=== PATIENT | female | born 1950 | race Caucasian/White ===

== ENCOUNTER → 2018-11-01 | Day surgery (SDC) | payer OTHER ==
--- NOTE | 2018-11-01 15:59 | OP ---
DATE OF OPERATION: 11/01/2018 PREOPERATIVE DIAGNOSIS: Abnormal right mammography. POSTOPERATIVE DIAGNOSIS: Abnormal right mammography. PROCEDURE: Right stereotactic needle biopsy with clip. SURGEON: Mercedes Liu MD ANESTHESIA: Local. COMPLICATIONS: None. DISPOSITION: Stable at end of procedure . INDICATIONS FOR PROCEDURE: Patient presented for a routine screening mammography that noted increasing microcalcifications in the upper outer right breast. My recommendation was a needle biopsy. The procedure was discussed with all the questions answered. PROCEDURE IN DETAIL: Patient brought to [facility] in [place], laid prone on the Lor[place] table. Using the lateral approach, the calcifications in the upper outer right breast were identified. A sterile prep was obtained. A target was chosen. There was a positive stroke margin. Using Betadine and 1% lidocaine, a 9-gauge Mobcartos device was used to take several cores from this area. Cores calcifications within them. These were handled using calcification protocol. A clip was deployed in the area. Hemostasis was assured with direct pressure. Steri-Strips were used to close the incision. She tolerated the procedure well. Left the breast imaging center in good condition. MERCEDES LIU M.D. [id number]
--- NOTE | 2018-11-02 15:42 | PATH ---
Surgical Pathology Report Patient Name: DAJA GARCIA [facility]. Rec. #: [id number] /Age/Gender: 1950 (Age: 67) / F Account: [id number] Location: [facility] Taken: 11/01/2018 Received: 11/01/2018 Reported: 11/02/2018 Physicians: Mercedes Cleveland M.D. Specimen(s) Received A: RIGHT BREAST SPECIMEN-WITH CALCIFICATIONS B: RIGHT BREAST SPECIMEN-WITHOUT CALCIFICATIONS Clinical History Nonpalpable lesions Mammographic findings: Microcalcification, suspicious Final Diagnosis A. BREAST, RIGHT, WITH CALCIFICATIONS, STEREOTACTIC BIOPSY: INVASIVE DUCTAL CARCINOMA, POORLY DIFFERENTIATED WITH FEW ASSOCIATED CALCIFICATIONS, MEASURING 7 MM IN GREATEST DIMENSION IN THIS MATERIAL. (SEE NOTE) DUCTAL CARCINOMA IN SITU (DCIS), SOLID TYPE, HIGH NUCLEAR GRADE WITH EXTENSIVE NECROSIS. Note: Myoepithelial immunohistochemical markers (SMM-HC and p63, performed at [facility]) demonstrate the lack of myoepithelial cells in the invasive carcinoma. This finding supports the diagnosis. B. BREAST, RIGHT, WITHOUT CALCIFICATIONS, STEREOTACTIC BIOPSY: INVASIVE DUCTAL CARCINOMA, POORLY DIFFERENTIATED. DUCTAL CARCINOMA IN SITU (DCIS), SOLID TYPE, HIGH NUCLEAR GRADE WITH EXTENSIVE NECROSIS. FOCI OF LYMPHOVASCULAR INVASION ARE IDENTIFIED. Results of ER and ID studies performed on block A at [facility] are as follows: ER (clone [id number] mouse monoclonal antibody by [employer]): 0 % nuclear staining (Negative). ID (clone16 mouse monoclonal antibody by [employer]): 0 % nuclear staining (Negative). Results of Her2 & Ki67 studies will be reported separately in an addendum. Positive and negative controls (internal if applicable) show appropriate results. Formalin fixation and cold ischemic times are within current ASCO/CAP recommendations for ER, ID and Her2 testing. Electronically Signed Barbara Garcia M.D. Addendum Reported: 11/03/2018 Addendum Diagnosis Results of Her2 (IHC) & Ki-67 studies performed on block A1 at [place], [place] ([id number]) are as follows: Her2 IHC (EP3 from [employer], formerly known as [id number], using [employer] Polymer Refine detection kit): 0 (negative). Ki-67: ~40% (high proliferative index). Positive and negative controls (internal if applicable) show appropriate results. Barbara Garcia M.D. Gross Description A. Received in formalin labeled "right breast with calcifications," are 2 linn-yellow, cylindrical portions of fibroadipose tissue averaging 2.0 cm in length and 0.3 cm in diameter. The specimens are submitted in toto in one cassette. B. Received in formalin labeled "right breast without calcifications," are 7 linn-yellow, cylindrical portions of fibroadipose tissue ranging from 0.5-2.0 cm in length and averaging 0.3 cm in diameter. The specimens are submitted in toto in 2 cassettes. Time to formalin fixation: 5 minutes Total formalin fixation time: Approximately 6 hours. 11/01/2018 [facility]11/01/2018
== END | disposition home or self-care (01) ==
LOC: FMAMMOTONE 10:57
PROVIDERS: ATTEND Surgery
PROC: 0HBT3ZX Excision of Right Breast, Percutaneous Approach, Diagnostic (ICD-10-PCS; principal; 2018-11-01)
DX: C50.411 Malignant neoplasm of upper-outer quadrant of right female breast (principal); D05.11 Intraductal carcinoma in situ of right breast; Z17.1 Estrogen receptor negative status [ER-]; R92.8 Other abnormal and inconclusive findings on diagnostic imaging of breast
CPT/HCPCS: 19081; 87899; 88305-TC; 88341-TC; 88342-TC; A4648

== ENCOUNTER 2018-12-15 04:57 | Day surgery (SDC) | payer OTHER | END 2018-12-15 15:20 | disposition home or self-care (01) | LOC: JASU-SURG 04:57 ==

== ENCOUNTER 2019-01-12 08:42 | Day surgery (SDC) | payer OTHER ==
[2019-01-12 09:07] VITALS: BMI 27.7
[2019-01-12] MEDS ORDERED: SUCCINYLCHOLINE CHLORIDE 200 MG/10 ML SYRINGE ONE (09:09)
[2019-01-12] MEDS ORDERED: fentaNYL CITRATE 250 MCG/5 ML VIAL ONE (09:09)
[2019-01-12] MEDS ORDERED: MIDAZOLAM HCL 2 MG/2 ML SINGLE DOSE VIAL ONE (09:09)
[2019-01-12] MEDS ORDERED: PROPOFOL 20 ML ONE (09:09)
[2019-01-12] MEDS ORDERED: LIDOCAINE HCL/PF 2% SDV 5ML VIAL ONE (09:10)
[2019-01-12] MEDS ORDERED: DEXAMETHASONE SOD PHOSPHATE 4 MG/1 ML VIAL ONE (09:10)
[2019-01-12] MEDS ORDERED: LIDOCAINE HCL 1%, 10 MG/ML (20ML VIAL) ONE (09:44)
[2019-01-12] MEDS ORDERED: oxyCODONE HCL 5 MG TABLET PO PRN ×2 (10:13)
[2019-01-12] MEDS ORDERED: ONDANSETRON 4 MG/2 ML VIAL IVPUSH PRN (10:13)
[2019-01-12] MEDS ORDERED: LACTATED RINGERS SOLUTION 1,000 ML IV SCH (10:15)
[2019-01-12] MEDS ORDERED: ceFAZolin SODIUM 1 GM VIAL IVPB ONE (10:39)
[2019-01-12] MEDS ORDERED: ceFAZolin SODIUM 1 GM VIAL ONE (10:43)
[2019-01-12] MEDS ORDERED: LIDOCAINE HCL 1%, 10 MG/ML (20ML VIAL) NR ONE (10:49)
[2019-01-12] MEDS ORDERED: KETOROLAC TROMETHAMINE 30 MG/1 ML VIAL ONE (11:37)
--- NOTE | 2019-01-12 12:06 | SURG ---
Surgery Technical Sales Associate Note Technical Sales Associate: Henok Colbert PA-C Date of Service: 01/12/19 Diagnosis: Rt breast cancer Procedure: Right breast re-excision lumpectomy and axillary lymph node dissection I was present for the entirety of the operative procedure. For further detail, please refer to operative report. Visit type - Case Type Case Type: Scheduled - Emergency Emergency Visit: No - New patient This patient is new to me today: Yes Date on this admission: 01/12/19 - Critical Care Critical Care patient: No
[2019-01-12] MEDS ORDERED: ONDANSETRON 4 MG/2 ML VIAL ONE (12:58)
[2019-01-12] MEDS ORDERED: oxyCODONE HCL 5 MG TABLET ONE (14:10)
[2019-01-12] MEDS ORDERED: oxyCODONE HCL 5 MG TABLET PO ONE (14:10)
[2019-01-12 16:28] VITALS: BP 122/71; PULSE 67; TEMP 97.9
--- NOTE | 2019-01-12 16:58 | OP ---
DATE OF OPERATION: 01/12/2019 PREOPERATIVE DIAGNOSIS: Right breast cancer. POSTOPERATIVE DIAGNOSIS: Right breast cancer. PROCEDURE: Right breast re-excision lumpectomy, completion node dissection. SURGEON: Mercedes Cleveland MD ANESTHESIA: General. ESTIMATED BLOOD LOSS: Minimal. COMPLICATIONS: None. This was a sterile procedure. INDICATIONS: Patient had a right breast stereotactic needle biopsy for calcifications that were noted lumpectomy and sentinel node biopsy which was performed by me, and then the lumpectomy showed a triple-negative 1.5-cm invasive carcinoma with DCIS that was close on the inferior margin. Therefore, my recommendation was re-excision. Also on the one sentinel node I removed there were multiple clusters of carcinoma. Thereafter, recommendation was for completion node dissection. The procedure was discussed, with all the questions answered. PROCEDURE IN DETAIL: Patient was brought to [facility] and taken into the operating room, and after induction of general anesthesia and IV antibiotics, the right breast and axilla were prepped and draped in the usual sterile fashion. The prior incision in the outer right breast was reopened sharply and the seroma cavity was entered. A new inferior margin was taken with a long stitch laterally and a short stitch in the new inferior margin. This was sent to pathology for permanent section. Hemostasis was assured with electrocautery. The parenchyma was approximated with interrupted 2-0 Vicryl, skin approximated with interrupted 3-0 Vicryl, running 4-0 Prolene. A sterile dressing with Tegaderm applied. Next, the right breast completion node dissection was performed. The prior incision was sharply reopened and the axillary cavity was entered. All the axillary contents were removed, and care was taken to preserve the thoracodorsal and long thoracic neurovascular bundles. The axillary contents were sent to pathology for permanent section. Hemostasis was achieved with electrocautery and hemoclips. Through a separate stab wound, a 10-mm DUSTIN drain was inserted into the right axilla and secured to the skin with a nylon stitch. The incision was then closed in a routine fashion with interrupted 3-0 Vicryl, running 4-0 Prolene. A sterile dressing of Tegaderm was applied, and 1% lidocaine without epinephrine was given in the axillary wound as well as the lumpectomy site. She tolerated the procedure well. Once the sterile dressing of Tegaderm and 4 x 4's was applied, she was extubated and taken to recovery room in good condition. Bobby VALENZUELA/[id number]
--- NOTE | 2019-01-15 16:24 | PATH ---
Surgical Pathology Report Patient Name: DAJA GARCIA [facility]. Rec. #: [id number] /Age/Gender: 1950 (Age: 68) / F Account: [id number] Location: [facility] SURGICAL Taken: 01/12/2019 Received: 01/12/2019 Reported: 01/15/2019 Physicians: Mercedes Cleveland M.D. Specimen(s) Received A: RIGHT BREAST NEW INFERIOR MARGIN B: RIGHT AXILLARY CONTENTS Clinical History Right breast cancer Final Diagnosis A. BREAST, RIGHT, NEW INFERIOR MARGIN, EXCISION: BENIGN BREAST PARENCHYMA WITH STROMAL FIBROSIS, MICROCYSTS, APOCRINE METAPLASIA, AND USUAL DUCTAL HYPERPLASIA IN A BACKGROUND OF CHANGES OF PRIOR PROCEDURE. NO CARCINOMA IDENTIFIED. B. AXILLARY CONTENTS, RIGHT, DISSECTION: FIFTEEN LYMPH NODES, NEGATIVE FOR CARCINOMA (0/15). BENIGN FIBROADIPOSE TISSUE WITH FIBROSIS, FAT NECROSIS, AND CHANGES OF PRIOR PROCEDURE. Electronically Signed Digna Coronado M.D. Gross Description A. Received in formalin labeled "right breast new inferior margin," is a 4.0 x 2.6 x 1.0 cm portion of fibroadipose tissue with a long suture marking the lateral aspect and a short suture marking the new inferior margin, per the surgeon. The lateral aspect is inked red and the new inferior margin is inked blue. The specimen is serially sectioned. The specimen is entirely and sequentially submitted in 7 cassettes. B. Received in formalin labeled "right axillary contents," is an 8.0 x 7.5 x 2.3 cm aggregate of yellow, lobulated adipose tissue. Sectioning reveals abundant linn-red lymph nodes measuring up to 2.5 cm in greatest dimension. The lymph nodes are entirely submitted in 13 cassettes as follows: 1-3-one trisected lymph node; 4-5-one bisected lymph node each; 6-12-two whole lymph nodes each; 13-one whole lymph node. 01/12/201901/12/2019
== END 2019-01-12 16:30 | disposition home or self-care (01) ==
LOC: JASU-SURG 08:42
PROVIDERS: ATTEND Surgery
PROC: 0HBT0ZZ Excision of Right Breast, Open Approach (ICD-10-PCS; principal; 2019-01-12 10:00)
PROC: 07B50ZX Excision of Right Axillary Lymphatic, Open Approach, Diagnostic (ICD-10-PCS; 2019-01-12 10:00)
DX: C50.911 Malignant neoplasm of unspecified site of right female breast (principal)
CPT/HCPCS: 88307-TC; 94760

== ENCOUNTER 2019-01-18 03:28 | Emergency (ER) | payer OTHER ==
[2019-01-18 04:14] VITALS: BMI 23.5
--- NOTE | 2019-01-18 04:48 | PDOC ---
Attending Attestation - Resident Resident Name: Magdalena Jim - ED Attending Attestation I have performed the following: I have examined & evaluated the patient, The case was reviewed & discussed with the resident, I agree w/resident's findings & plan - HPI HPI: 01/18/19 06:30 68-year-old female with history of breast cancer status post recent lumpectomy now with right-sided pleuritic chest and back pain. - Physicial Exam PE: 01/18/19 06:30 GENERAL: Awake, in no acute distress HEAD: No signs of trauma NECK: Normal ROM, LUNGS:. dim BS right base HEART: Regular rate and rhythm, ABDOMEN: Soft, nondistended CHEST WALL: BACK: No midline tenderness. EXTREMITIES:. No erythema, or tenderness NEUROLOGICAL: Alert, SKIN: Warm, Dry - Medical Decision Making 01/18/19 06:31 68-year-old female with right-sided pleuritic chest pain Due to history of malignancy a CTA of the chest has been ordered EKG shows no significant ST segment changes Will sign case out to oncoming shift
--- NOTE | 2019-01-18 05:02 | PDOC ---
History of Present Illness - General Chief Complaint: Pain, Acute Stated Complaint: Back pain Time Seen by Provider: 01/18/19 04:37 History Source: Patient, Family Exam Limitations: Language Barrier - History of Present Illness Initial Comments: 01/18/19 05:00 68yo F with PMH of R Breast Ca s/p lumpectomy 01/12/19, HTN, HLD presenting to ED with daughter for sudden onset sharp back pain that started at midnight tonight. Pt states she was sleeping and was woken up around midnight. She endorses pain with inspiration. She was prescribed Percocet for the pain but it did not help. She states that this pain is different. She denies cough, chest pain, fevers, chills, abdominal pain, n/v/d, headaches, palpitations. She is not on chemotherapy or any other medications. PMD: ONC: PMH: see hpi PSH: see hpi Meds: see med rec Allergies: nkda Past History - Past Medical History Allergies/Adverse Reactions: Allergies Allergy/AdvReac Type Severity Reaction Status Date / Time shrimp Allergy Intermediate VOMITING/DI Verified 01/18/19 04:10 ARRHEA Home Medications: Ambulatory Orders Hydrochlorothiazide [Hctz -] 25 mg PO DAILY 12/15/18 Rosuvastatin [Crestor -] 20 mg PO DAILY 12/15/18 Cephalexin Monohydrate [Keflex -] 500 mg PO Q8H 7 Days #30 capsule 01/12/19 Cephalexin [Keflex] 500 mg PO TID 7 Days capsule 01/12/19 Oxycodone HCl/Acetaminophen [Percocet 5-325 mg Tablet] 2 tab PO Q6H PRN #20 tablet MDD 8 pills 01/12/19 Anemia: No Asthma: No Cancer: Yes (Right Breast) Cardiac Disorders: No CVA: No COPD: No CHF: No Dementia: No Diabetes: No GI Disorders: No Disorders: No HTN: Yes Hypercholesterolemia: Yes (no medication currently) Liver Disease: No Seizures: No Thyroid Disease: No - Suicide/Smoking/Psychosocial Hx Smoking History: Never smoked Have you smoked in the past 12 months: No If you are a former smoker, when did you quit?: 40 YEARS AGO Information on smoking cessation initiated: No Hx Alcohol Use: No Drug/Substance Use Hx: No Substance Use Type: None Hx Substance Use Treatment: No Review of Systems - Review of Systems Constitutional: No: Chills, Fever, Weakness HEENTM: No: Symptoms Reported Respiratory: Yes: Other (inspirational cp). No: Cough, Shortness of Breath Cardiac (ROS): Yes: Lightheadedness. No: Chest Pain, Palpitations ABD/GI: No: Constipated, Diarrhea, Nausea, Vomiting Musculoskeletal: Yes: See HPI, Back Pain. No: Neck Pain, Joint Stiffness Integumentary: No: Symptoms Reported Neurological: No: Symptoms reported *Physical Exam - Vital Signs Last Vital Signs Temp Pulse Resp BP Pulse Ox 99.3 F 100 H 20 140/82 97 01/18/19 03:45 01/18/19 03:45 01/18/19 03:45 01/18/19 03:45 01/18/19 03:45 - Physical Exam General Appearance: Yes: Nourished, Appropriately Dressed. No: Apparent Distress HEENT: positive: EOMI, DARRYN, Normal ENT Inspection Neck: positive: Trachea midline, Supple Respiratory/Chest: positive: Lungs Clear, Normal Breath Sounds Cardiovascular: positive: Regular Rhythm, S1, S2, Tachycardia. negative: Edema , JVD, Murmur Gastrointestinal/Abdominal: positive: Normal Bowel Sounds, Soft. negative: Tender Musculoskeletal: positive: Other (R upper back tenderness subscapular. ). negative: CVA Tenderness, Vertebral Tenderness Integumentary: positive: Normal Color, Dry, Warm Neurologic: positive: automobile seat cover installer II-XII NML intact, Fully Oriented, Alert, Normal Mood/ Affect, Normal Response, Motor Strength 11/12 ED Treatment Course - LABORATORY CBC & Chemistry Diagram: 01/18/19 05:42 01/18/19 05:42 - RADIOLOGY Radiology Studies Ordered: Category Date Time Status CHEST PA & LAT [RAD] Stat Radiology 01/18/19 04:58 Ordered Medical Decision Making - Medical Decision Making 01/18/19 06:57 68yo F with PMH of R Breast Ca s/p lumpectomy 01/12/19, HTN, HLD presenting to ED with daughter for sudden onset sharp back pain that started at midnight tonight. Pt states she was sleeping and was woken up around midnight. She endorses pain with inspiration. She was prescribed Percocet for the pain but it did not help. She denies cough, chest pain, fevers, chills, abdominal pain, n/v/ d, headaches, palpitations. She is not on chemotherapy or any other medications. Vitals: tachycardia PE: R subscapular tenderness, pain with inspiration ddx includes but not limited to pe, msk, pna, -labs -ekg -percocet -CTA Cr 1.4. will hydrate and obtain consent for CT. PERC positive. EKG: NSR at 98. NM 158, QTc 428. no elsa or depressions. trop pending pt started feeling dizzy, could be 2/2 percocet, will give iv fluids. 01/18/19 07:47 signed out to day team *DC/Admit/Observation/Transfer Diagnosis at time of Disposition: Back pain Qualifiers: Back pain location: thoracic back pain Chronicity: acute Back pain laterality: right Qualified Code(s): M54.6 - Pain in thoracic spine - Discharge Dispostion Condition at time of disposition: Fair - Referrals - Patient Instructions - Post Discharge Activity
[2019-01-18 05:54] LABS: BASO % 0.7 % (0-2.0); EOS % 0.6 % (0-4.5); HEMATOCRIT 35.3 % (32.4-45.2); LYMPH % 14.1 % (8-40); MEAN PLT VOLUME 7.7 fl (7.5-11.1); MONO % 8.1 % (3.8-10.2); NEUT % 76.5 % (42.8-82.8); PLATELET COUNT 283 K/MM3 (134-434); RBC 3.75 M/mm3 (3.60-5.2); RDW 12.9 % (11.6-15.6); WHITE BLOOD COUNT 9.7 K/mm3 (4.0-10.0)
[2019-01-18 06:20] LABS: ALBUMIN 3.6 g/dl (3.4-5.0); ALK PHOS 96 U/L (45-117); ANION GAP 6 MMOL/L (8-16); BILIRUBIN,TOTAL 0.7 mg/dL (0.2-1); BLOOD UREA NITROGEN 24.3 mg/dL (7-18); CALCIUM 9.4 mg/dL (8.5-10.1); CHLORIDE 97 mmol/L (98-107); CO2 32 mmol/L (21-32); CREATININE 1.4 mg/dL (0.55-1.3); GLUCOSE,RANDOM 108 mg/dL (74-106); POTASSIUM 4.2 mmol/L (3.5-5.1); SGOT/AST 31 U/L (15-37); SGPT/ALT 60 U/L (13-61); SODIUM 134 mmol/L (136-145); TOT PROT 7.5 g/dl (6.4-8.2)
[2019-01-18] MEDS ORDERED: SODIUM CHLORIDE 1,000 ML IV STA (06:38)
--- NOTE | 2019-01-18 08:00 | PDOC ---
*Physical Exam - Vital Signs Last Vital Signs Temp Pulse Resp BP Pulse Ox 99.3 F 100 H 20 140/82 97 01/18/19 03:45 01/18/19 03:45 01/18/19 03:45 01/18/19 03:45 01/18/19 03:45 ED Treatment Course - LABORATORY CBC & Chemistry Diagram: 01/18/19 05:42 01/18/19 05:42 - ADDITIONAL ORDERS Additional order review: Laboratory Results 01/18/19 05:42 Sodium 134 L Potassium 4.2 Chloride 97 L Carbon Dioxide 32 Anion Gap 6 L BUN 24.3 H Creatinine 1.4 H Est GFR (CKD-EPI)AfAm 44.95 Est GFR (CKD-EPI)NonAf 38.78 Random Glucose 108 H Calcium 9.4 Total Bilirubin 0.7 AST 31 ALT 60 Alkaline Phosphatase 96 Troponin I < 0.02 Total Protein 7.5 Albumin 3.6 01/18/19 05:42 RBC 3.75 MCV 94.0 MCHC 34.0 RDW 12.9 MPV 7.7 Neutrophils % 76.5 D Lymphocytes % 14.1 D Monocytes % 8.1 Eosinophils % 0.6 Basophils % 0.7 - Medications Given in the ED: ED Medications Discontinued Medications Generic Name Dose Route Start Last Admin Trade Name Freq PRN Reason Stop Dose Admin Sodium Chloride 1,000 mls @ 1,000 mls/hr 01/18/19 06:38 01/18/19 06:53 Normal Saline - IV 01/18/19 07:37 1,000 mls/hr ASDIR STA Administration Oxycodone/Acetaminophen 2 combo 01/18/19 04:58 01/18/19 05:58 Percocet 5/325 - PO 01/18/19 04:59 2 combo ONCE ONE Administration Medical Decision Making - Medical Decision Making Pt was signed out to me by resident Dr. Jim, who explained the presentation, ED course, any pending results, and needed interventions. Pending results include CTA read. Pt is currently stable and is lying comfortably. CBC WNL CMP Na 134, BUN/Cr 24/1.4 -- pt baseline, receiving IVF and percocet Pending CTA read. ECG: NSR, intervals WNL (HR 98, SD 158, QRS 72, QTC 428). No TWIs or significant ST segment changes. No significant changes from prior ECG. 01/18/19 07:56 Pending read of CTA Pt still complaining of pain through R posterior chest wall. Providing lidocaine patch. 01/18/19 08:45 Sending UA and urine culture Providing 2 mg IV morphine as minimal relief of chest wall pain with lidocaine patch. 01/18/19 09:18 CTA study was limited but showed no evidence of aortic aneurysm or PE. b/l atelectasis at the bases. No significant consolidation or pleural disease. Seroma of the breast 2/2 lumpectomy. 01/18/19 09:20 UA negative for infection or blood. Provided 15 mg IV toradol for continued pain control and home dose of 25 mg PO HCTZ. 01/18/19 11:37 Pts pain improved after toradol. Considering normal lab results and imaging, pt can be discharged to home with follow-up. Pt advised to follow-up with PCP in 1-2 days. Strict return precautions provided with pt understanding. 01/18/19 12:27 *DC/Admit/Observation/Transfer Diagnosis at time of Disposition: Back pain Qualifiers: Back pain location: thoracic back pain Chronicity: acute Back pain laterality: right Qualified Code(s): M54.6 - Pain in thoracic spine - Discharge Dispostion Disposition: HOME Condition at time of disposition: Improved Decision to Admit order: No - Referrals Referrals: Mercedes Cleveland MD [Staff Physician] - Ronald Alcantara FNP [Non Staff, Medical] - - Patient Instructions Printed Discharge Instructions: DI for Thoracic Back Pain Additional Instructions: You were seen in the ER today for back pain. The results of your labs and imaging today were normal. Please follow-up with your primary care doctor and surgeon within 1-2 days to discuss your visit and make sure your symptoms have improved. Please return to the ER if you have any worsening pain, development of fevers or chills, loss of consciousness, inability to tolerate food or fluids , or any other concerns. - Post Discharge Activity
[2019-01-18] MEDS ORDERED: LIDOCAINE 5% TOPICAL PATCH TP ONE (08:45)
[2019-01-18] MEDS ORDERED: LIDOCAINE 5% TOPICAL PATCH ONE (08:53)
[2019-01-18] MEDS ORDERED: morphine CARPU-JECT 4 MG/1 ML DISP.SYRIN IVPUSH ONE (09:17)
[2019-01-18 10:32] LABS: EPI CELLS 0.2 /HPF (0-5/HPF); HYALINE CASTS 1 /lpf (0-8); URINE APPEARANCE CLEAR; URINE BACTERIA 0.8 /hpf (NEGATIVE); URINE BILIRUBIN NEGATIVE (NEGATIVE); URINE COLOR YELLOW; URINE GLUCOSE (UA) NEGATIVE (NEGATIVE); URINE KETONE NEGATIVE (NEGATIVE); URINE LEUK ESTERASE NEGATIVE (NEGATIVE); URINE NITRITE NEGATIVE (NEGATIVE); URINE PROTEIN 2+ (NEGATIVE); URINE RBC 2 /hpf (0-4); URINE UROBILINOGEN 0.2 mg/dL (0.2-1.0); URINE WBC 0 /hpf (0-5)
[2019-01-18] MEDS ORDERED: KETOROLAC TROMETHAMINE 15 MG/ML VIAL IVPUSH ONE (11:05)
[2019-01-18] MEDS ORDERED: HYDROCHLOROTHIAZIDE 25 MG TABLET (FP) PO ONE (11:12)
[2019-01-18] MEDS ORDERED: HYDROCHLOROTHIAZIDE 25 MG TABLET (FP) ONE (11:19)
[2019-01-18] MEDS ORDERED: KETOROLAC TROMETHAMINE 15 MG/ML VIAL ONE (11:20)
[2019-01-18 12:50] VITALS: BP 137/78; PULSE 88; TEMP 98.5
--- NOTE | 2019-01-18 17:09 | EKG ---
Test Reason : Blood Pressure : / mmHG Vent. Rate : 098 BPM Atrial Rate : 098 BPM P-R Int : 158 ms QRS Dur : 072 ms QT Int : 336 ms P-R-T Axes : 024 019 069 degrees QTc Int : 428 ms NORMAL SINUS RHYTHM NORMAL ECG WHEN COMPARED WITH ECG OF 05-DEC-2018 15:46, NO SIGNIFICANT CHANGE WAS FOUND Confirmed by JB RODRIGUEZ MD ([id number]) on 01/18/2019 5:09:14 PM Referred By: Confirmed By:JB RODRIGUEZ MD
[2019-01-18] MEDS ORDERED: LIDOCAINE PATCH REMOVAL MC SCH (22:00)
== END 2019-01-18 12:50 | disposition home or self-care (01) ==
LOC: JER 03:28
PROC: 3E033NZ Introduction of Analgesics, Hypnotics, Sedatives into Peripheral Vein, Percutaneous Approach (ICD-10-PCS; principal; 2019-01-18)
PROC: 3E0333Z Introduction of Anti-inflammatory into Peripheral Vein, Percutaneous Approach (ICD-10-PCS; 2019-01-18)
DX: M54.6 Pain in thoracic spine (principal); I10 Essential (primary) hypertension; E78.00 Pure hypercholesterolemia, unspecified; Z85.3 Personal history of malignant neoplasm of breast
CPT/HCPCS: 36415; 71046-TC-FY; 71275-TC; 80053; 81003; 84484; 85025; 87086; 93005; 93010; 99283-25; J7030

== ENCOUNTER 2020-10-04 20:00 | Inpatient (IN) | payer OTHER ==
[2020-10-04] MEDS ORDERED: ACETAMINOPHEN 325 MG TABLET (FP) PO ONE (21:16)
[2020-10-04] MEDS ORDERED: ACETAMINOPHEN 325 MG TABLET (FP) ONE (21:29)
[2020-10-04 21:47] LABS: EOS % 0.4 % (0-4.5); HEMATOCRIT 36.4 % (32.4-45.2); HEMOGLOBIN 12.4 GM/dL (10.7-15.3); LYMPH % 9.5 % (8-40); MCH 32.1 pg (25.7-33.7); MCHC 33.9 g/dl (32.0-36.0); MEAN CELL VOLUME 94.5 fl (80-96); MEAN PLT VOLUME 7.7 fl (7.5-11.1); NEUT % 73.1 % (42.8-82.8); PLATELET COUNT 282 K/MM3 (134-434); RBC 3.86 M/mm3 (3.60-5.2); RDW 13.6 % (11.6-15.6); WHITE BLOOD COUNT 4.4 K/mm3 (4.0-10.0)
[2020-10-04 22:07] LABS: ALBUMIN 3.7 g/dl (3.4-5.0); BLOOD UREA NITROGEN 20.7 mg/dL (7-18); CALCIUM 8.9 mg/dL (8.5-10.1)
[2020-10-04 22:10] LABS: CREATININE 1.6 mg/dL (0.55-1.3)
[2020-10-04 22:12] LABS: BILIRUBIN,TOTAL 0.5 mg/dL (0.2-1)
[2020-10-04] MEDS ORDERED: LACTATED RINGERS SOLUTION 1000 ML INFUS.BAG IV ONE (22:51)
[2020-10-04] MEDS ORDERED: METOCLOPRAMIDE HCL INJECTION 10 MG/2 ML VIAL IVPUSH ONE (23:26)
[2020-10-04] MEDS ORDERED: PROCHLORPERAZINE INJECTION 10 MG/2 ML VIAL IVPB ONE (23:26)
[2020-10-04] MEDS ORDERED: METOCLOPRAMIDE HCL INJECTION 10 MG/2 ML VIAL ONE (23:57)
[2020-10-04 23:58] LABS: CALCIUM 8.7 mg/dL (8.5-10.1)
[2020-10-04 23:59] LABS: BLOOD UREA NITROGEN 21.6 mg/dL (7-18)
[2020-10-05 00:02] LABS: CREATININE 1.5 mg/dL (0.55-1.3)
[2020-10-05] MEDS ORDERED: BAMLANIVIMAB 700 MG, ETESEVIMAB 1,400 MG in SODIUM CHLORIDE 250 ML IVPB ONE (00:09)
[2020-10-05] MEDS ORDERED: ACETAMINOPHEN 500 MG TABLET (FP) PO ONE (02:13)
[2020-10-05] MEDS ORDERED: ACETAMINOPHEN 325 MG TABLET (FP) ONE ×2 (02:14→18:17)
[2020-10-05 03:07] LABS: EPI CELLS 2 /uL (0-25.1); HYALINE CASTS 0 /uL (0-3.1); URINE APPEARANCE CLEAR; URINE BACTERIA 42 /uL (0-1359); URINE BILIRUBIN NEGATIVE (NEGATIVE); URINE COLOR YELLOW; URINE GLUCOSE (UA) NEGATIVE (NEGATIVE); URINE KETONE NEGATIVE (NEGATIVE); URINE LEUK ESTERASE NEGATIVE (NEGATIVE); URINE NITRITE NEGATIVE (NEGATIVE); URINE PROTEIN 1+ (NEGATIVE); URINE RBC 7 /uL (0-23.9); URINE UROBILINOGEN 0.2 mg/dL (0.2-1.0); URINE WBC 2 /uL (0-25.8)
[2020-10-05 06:18] LABS: INR 0.95 (0.83-1.09); PROTHROMBIN TIME (PATIENT) 11.7 SEC (9.7-13.0)
[2020-10-05 06:21] LABS: ACTIVATED PTT 18.9 SECONDS (25.2-36.5)
[2020-10-05 07:24] LABS: BASO % 0.9 % (0-2.0); EOS % 0.4 % (0-4.5); HEMATOCRIT 35.3 % (32.4-45.2); LYMPH % 8.7 % (8-40); MCH 32.7 pg (25.7-33.7); MCHC 34.1 g/dl (32.0-36.0); MEAN CELL VOLUME 95.7 fl (80-96); MEAN PLT VOLUME 8.8 fl (7.5-11.1); MONO % 16.7 % (3.8-10.2); NEUT % 73.3 % (42.8-82.8); PLATELET COUNT 229 K/MM3 (134-434); RBC 3.68 M/mm3 (3.60-5.2); RDW 13.7 % (11.6-15.6); WHITE BLOOD COUNT 7.3 K/mm3 (4.0-10.0)
[2020-10-05 07:54] LABS: CALCIUM 8.8 mg/dL (8.5-10.1)
[2020-10-05 07:55] LABS: ALBUMIN 3.5 g/dl (3.4-5.0); BLOOD UREA NITROGEN 16.4 mg/dL (7-18)
[2020-10-05 07:58] LABS: CREATININE 1.3 mg/dL (0.55-1.3)
[2020-10-05 07:59] LABS: BILIRUBIN,TOTAL 0.8 mg/dL (0.2-1)
[2020-10-05 08:00] LABS: TOT PROT 7.4 g/dl (6.4-8.2)
[2020-10-05] MEDS ORDERED: IBUPROFEN 600 MG TABLET (FP) PO ONE ×2 (08:09→08:16)
[2020-10-05 09:49] LABS: BILIRUBIN,DIRECT 0.1 mg/dL (0.0-0.2)
[2020-10-05 09:52] LABS: LDH 176 U/L (84-246)
[2020-10-05] MEDS ORDERED: ENOXAPARIN NA (PORCINE) 80 MG/0.8 ML DISP.SYRIN SQ SCH ×2 (10:15)
[2020-10-05] MEDS ORDERED: HYDROCHLOROTHIAZIDE 25 MG TABLET (FP) PO ONE (10:35)
[2020-10-05] MEDS ORDERED: ENOXAPARIN NA (PORCINE) 100 MG/1 ML DISP.SYRIN SQ ONE (10:35)
[2020-10-05] MEDS ORDERED: HYDROCHLOROTHIAZIDE 25 MG TABLET (FP) ONE (10:40)
[2020-10-05] MEDS: ENOXAPARIN NA (PORCINE) 100 MG/1 ML DISP.SYRIN SQ SCH ×2 (11:04→22:11)
[2020-10-05] MEDS: SODIUM CHLORIDE 1,000 ML IV SCH (13:27)
[2020-10-05] MEDS: ACETAMINOPHEN 325 MG TABLET (FP) PO PRN ×2 (18:20→22:16)
[2020-10-06 01:12] VITALS: BMI 32.3
[2020-10-06 01:55] LABS: ARTERIAL BLOOD GAS BASE EXCESS 2.7 mmol/L (-2-2); ARTERIAL BLOOD GAS PO2 74.2 mmHg (80-100); ARTERIAL BLOOD GAS pH 7.415 (7.350-7.450)
[2020-10-06 01:56] LABS: ALLENS TEST POSITIVE
[2020-10-06] MEDS: ACETAMINOPHEN 325 MG TABLET (FP) PO PRN ×2 (03:16→13:45)
[2020-10-06 07:42] VITALS: TEMP 99
[2020-10-06 08:18] LABS: BASO % 0.9 % (0-2.0); HEMATOCRIT 32.4 % (32.4-45.2); HEMOGLOBIN 11.2 GM/dL (10.7-15.3); LYMPH % 41.7 % (8-40); MCH 32.4 pg (25.7-33.7); MCHC 34.6 g/dl (32.0-36.0); MEAN CELL VOLUME 93.5 fl (80-96); MEAN PLT VOLUME 7.7 fl (7.5-11.1); MONO % 26.7 % (3.8-10.2); NEUT % 30.7 % (42.8-82.8); PLATELET COUNT 226 K/MM3 (134-434); RBC 3.47 M/mm3 (3.60-5.2); RDW 13.7 % (11.6-15.6)
[2020-10-06 08:20] LABS: ALBUMIN 2.9 g/dl (3.4-5.0); BILIRUBIN,TOTAL 0.6 mg/dL (0.2-1); BLOOD UREA NITROGEN 16.9 mg/dL (7-18); CALCIUM 7.9 mg/dL (8.5-10.1); CREATININE 1.6 mg/dL (0.55-1.3); TOT PROT 6.3 g/dl (6.4-8.2)
[2020-10-06] MEDS: ENOXAPARIN NA (PORCINE) 100 MG/1 ML DISP.SYRIN SQ SCH (09:03)
[2020-10-06] MEDS ORDERED: LISINOPRIL 5 MG TABLET PO SCH (10:00)
[2020-10-06 11:41] LABS: ANISOCYTOSIS 0; MACROCYTOSIS 0; OVALOCYTE 1+; PLATELET ESTIMATE NORMAL
[2020-10-06] MEDS: SODIUM CHLORIDE 1,000 ML IV SCH (13:12)
[2020-10-06 14:28] VITALS: BP 135/86; PULSE 102
[2020-10-06] MEDS ORDERED: ENOXAPARIN NA (PORCINE) 80 MG/0.8 ML DISP.SYRIN SQ ONE (19:00)
[2020-10-06] MEDS ORDERED: ENOXAPARIN NA (PORCINE) 100 MG/1 ML DISP.SYRIN SQ ONE (19:15)
== END 2020-10-06 20:08 | disposition home or self-care (01) | DRG 137 ==
LOC: JER 20:00 → JERBED 10-05 11:49 → J2W 10-05 21:09
PROVIDERS: ADMIT Internal Medicine; ATTEND Internal Medicine
PROC: XW033H6 Introduction of Other New Technology Monoclonal Antibody into Peripheral Vein, Percutaneous Approach, New Technology Group 6 (ICD-10-PCS; principal; 2020-10-05)
DX: U07.1 COVID-19 (principal); R51.9 Headache, unspecified; N17.9 Acute kidney failure, unspecified; I26.99 Other pulmonary embolism without acute cor pulmonale; E86.0 Dehydration; R00.0 Tachycardia, unspecified; E78.5 Hyperlipidemia, unspecified; I12.9 Hypertensive chronic kidney disease with stage 1 through stage 4 chronic kidney disease, or unspecified chronic kidney disease; N18.9 Chronic kidney disease, unspecified; E66.9 Obesity, unspecified; Z68.32 Body mass index [BMI] 32.0-32.9, adult
CPT/HCPCS: 36415; 36600; 70450-TC; 71045-TC-FY; 71275-TC; 80048; 80053; 81003; 82248; 82550; 82728; 82803; 83605; 83615; 84484; 85025; 85379; 85610; 85730; 86140; 87040; 87804; 93005; 93010; 93306-TC; 93970-TC; 99285-25; C9803; M0239; Q0239; Q0245; Q9967; U0003; U0005

== ENCOUNTER 2021-08-17 08:32 | Emergency (ER) | payer OTHER ==
[2021-08-17 08:37] VITALS: PULSE 84; BMI 30.7
[2021-08-17] MEDS ORDERED: SODIUM CHLORIDE 0.9% 500 ML INFUS.BAG IV ONE (09:43)
[2021-08-17] MEDS ORDERED: METOCLOPRAMIDE HCL INJECTION 10 MG/2 ML VIAL IVPUSH ONE (09:43)
[2021-08-17] MEDS ORDERED: METOCLOPRAMIDE HCL INJECTION 10 MG/2 ML VIAL ONE (10:08)
[2021-08-17] MEDS ORDERED: ACETAMINOPHEN 1000 MG/100 ML BAG IVPB ONE (10:56)
[2021-08-17] MEDS ORDERED: ACETAMINOPHEN INJECTION 100 ML IVPB ONE (12:35)
[2021-08-17 12:49] LABS: BASO % 0.8 % (0-2.0); EOS % 0.1 % (0-4.5); HEMATOCRIT 34.4 % (32.4-45.2); HEMOGLOBIN 11.6 GM/dL (10.7-15.3); LYMPH % 20.9 % (8-40); MCH 31.8 pg (25.7-33.7); MCHC 33.6 g/dl (32.0-36.0); MEAN CELL VOLUME 94.6 fl (80-96); MEAN PLT VOLUME 7.8 fl (7.5-11.1); MONO % 4.5 % (3.8-10.2); NEUT % 73.7 % (42.8-82.8); PLATELET COUNT 304 10^3/uL (134-434); RBC 3.63 M/mm3 (3.60-5.2); RDW 13.2 % (11.6-15.6); WHITE BLOOD COUNT 4.4 K/mm3 (4.0-10.0)
[2021-08-17 13:05] LABS: INR 0.97 (0.83-1.09); PROTHROMBIN TIME (PATIENT) 11.2 SEC (9.7-13.0)
[2021-08-17 13:06] VITALS: TEMP 98.4
[2021-08-17 13:06] LABS: CALCIUM 9.1 mg/dL (8.5-10.1)
[2021-08-17 13:08] LABS: ACTIVATED PTT 28.6 SECONDS (25.2-36.5); ALBUMIN 3.5 g/dl (3.4-5.0); BLOOD UREA NITROGEN 21.3 mg/dL (7-18)
[2021-08-17 13:10] LABS: CREATININE 1.3 mg/dL (0.55-1.3)
[2021-08-17 13:11] LABS: TOT PROT 7.3 g/dl (6.4-8.2)
[2021-08-17 13:12] LABS: BILIRUBIN,TOTAL 0.9 mg/dL (0.2-1)
[2021-08-17 18:26] VITALS: BP 169/85
== END 2021-08-17 18:20 | disposition home or self-care (01) ==
LOC: JER 08:32
PROC: 3E033GC Introduction of Other Therapeutic Substance into Peripheral Vein, Percutaneous Approach (ICD-10-PCS; principal; 2021-08-17)
DX: R51.9 Headache, unspecified (principal)
CPT/HCPCS: 36415; 70450-TC; 71045-TC-FY; 80053; 82550; 83880; 84484; 85025; 85610; 85730; 93005; 93010; 93970-TC; 99285-25; C9803; U0003; U0005

== ENCOUNTER 2021-10-04 19:09 | Inpatient (IN) | payer OTHER ==
[2021-10-04 20:20] LABS: BASO % 0.7 % (0-2.0); HEMATOCRIT 34.1 % (32.4-45.2); HEMOGLOBIN 11.5 GM/dL (10.7-15.3); LYMPH % 25.4 % (8-40); MCH 31.9 pg (25.7-33.7); MCHC 33.8 g/dl (32.0-36.0); MEAN CELL VOLUME 94.5 fl (80-96); MEAN PLT VOLUME 7.6 fl (7.5-11.1); MONO % 8.1 % (3.8-10.2); NEUT % 64.8 % (42.8-82.8); PLATELET COUNT 286 10^3/uL (134-434); RBC 3.61 M/mm3 (3.60-5.2); RDW 12.8 % (11.6-15.6); WHITE BLOOD COUNT 6.1 K/mm3 (4.0-10.0)
[2021-10-04] MEDS ORDERED: ACETAMINOPHEN 325 MG TABLET (FP) PO ONE (20:27)
[2021-10-04] MEDS ORDERED: ACETAMINOPHEN 325 MG TABLET (FP) ONE (20:29)
[2021-10-04 20:34] LABS: BLOOD UREA NITROGEN 32.4 mg/dL (7-18); CALCIUM 9.1 mg/dL (8.5-10.1)
[2021-10-04 20:35] LABS: ACTIVATED PTT 28.6 SECONDS (25.2-36.5); ALBUMIN 3.7 g/dl (3.4-5.0); INR 0.94 (0.83-1.09); PROTHROMBIN TIME (PATIENT) 10.8 SEC (9.7-13.0)
[2021-10-04 20:38] LABS: CREATININE 1.6 mg/dL (0.55-1.3)
[2021-10-04 20:39] LABS: BILIRUBIN,TOTAL 0.5 mg/dL (0.2-1); TOT PROT 7.5 g/dl (6.4-8.2)
[2021-10-04 20:45] LABS: N-TERMINAL BNP 465.2 pg/ml (5-125)
[2021-10-04] MEDS ORDERED: HEPARIN NA (PORCINE) 5,000 UNITS/ML 1ML VIAL IVPUSH PRN ×2 (21:04)
[2021-10-04] MEDS ORDERED: ASPIRIN 325 MG TABLET PO ONE (21:04)
[2021-10-04] MEDS ORDERED: ASPIRIN 81 MG CHEWABLE TABLETS PO ONE (21:14)
[2021-10-04] MEDS ORDERED: ASPIRIN 81 MG CHEWABLE TABLETS ONE (21:16)
[2021-10-04] MEDS ORDERED: ATORVASTATIN CA 80 MG TABLET (FP) PO ONE (21:32)
[2021-10-04] MEDS ORDERED: METOPROLOL TARTRATE 50 MG TABLET (FP) PO ONE (21:32)
[2021-10-04] MEDS ORDERED: CLOPIDOGREL BISULFATE 75 MG TABLET (FP) PO ONE (21:32)
[2021-10-04] MEDS ORDERED: LISINOPRIL 20 MG TABLET PO ONE (21:36)
[2021-10-04] MEDS ORDERED: ISOSORBIDE MONONITRATE 60 MG TAB.SR.24H (FP) PO ONE (21:48)
[2021-10-04] MEDS ORDERED: ATORVASTATIN CA 80 MG TABLET (FP) ONE (21:48)
[2021-10-04] MEDS ORDERED: METOPROLOL TARTRATE 50 MG TABLET (FP) ONE (21:48)
[2021-10-04] MEDS ORDERED: CLOPIDOGREL BISULFATE 75 MG TABLET (FP) ONE (21:49)
[2021-10-04] MEDS: ISOSORBIDE MONONITRATE 30 MG TAB.SR.24H (FP) PO SCH (21:52)
[2021-10-04] MEDS: HEPARIN - 25,000 UNIT in SODIUM CHLORIDE 495 ML IV SCH (22:58)
[2021-10-05 01:40] VITALS: BMI 31.6
[2021-10-05] MEDS ORDERED: ACETAMINOPHEN 1000 MG/100 ML BAG IVPB ONE (02:11)
[2021-10-05] MEDS: METOPROLOL TARTRATE 50 MG TABLET (FP) PO SCH ×3 (02:28→18:26)
[2021-10-05] MEDS: ACETAMINOPHEN 325 MG TABLET (FP) PO PRN ×3 (03:22→21:49)
[2021-10-05 08:04] LABS: BASO % 0.6 % (0-2.0); EOS % 0.9 % (0-4.5); HEMATOCRIT 29.8 % (32.4-45.2); HEMOGLOBIN 10.1 GM/dL (10.7-15.3); LYMPH % 28.6 % (8-40); MCH 32.1 pg (25.7-33.7); MEAN CELL VOLUME 94.5 fl (80-96); MEAN PLT VOLUME 7.8 fl (7.5-11.1); MONO % 9.2 % (3.8-10.2); NEUT % 60.7 % (42.8-82.8); PLATELET COUNT 235 10^3/uL (134-434); RBC 3.16 M/mm3 (3.60-5.2); RDW 12.6 % (11.6-15.6); WHITE BLOOD COUNT 5.8 K/mm3 (4.0-10.0)
[2021-10-05 08:08] LABS: CALCIUM 8.8 mg/dL (8.5-10.1)
[2021-10-05 08:09] LABS: MAGNESIUM 1.6 mg/dL (1.8-2.4)
[2021-10-05 08:11] LABS: CREATININE 1.4 mg/dL (0.55-1.3)
[2021-10-05 08:12] LABS: PHOSPHOROUS 4.1 mg/dL (2.5-4.9)
[2021-10-05 08:13] LABS: BILIRUBIN,TOTAL 0.7 mg/dL (0.2-1)
[2021-10-05 08:59] LABS: ALBUMIN 2.8 g/dl (3.4-5.0)
[2021-10-05] MEDS: ISOSORBIDE MONONITRATE 30 MG TAB.SR.24H (FP) PO SCH (09:58)
[2021-10-05] MEDS: LOSARTAN POTASSIUM 50 MG TABLET PO SCH (09:58)
[2021-10-05] MEDS: ASPIRIN COATED 81 MG TABLET.EC PO SCH (09:58)
[2021-10-05] MEDS: CLOPIDOGREL BISULFATE 75 MG TABLET (FP) PO SCH (09:58)
[2021-10-05] MEDS ORDERED: CLOPIDOGREL BISULFATE 300 MG TABLET PO ONE (13:40)
[2021-10-05] MEDS ORDERED: CLOPIDOGREL BISULFATE PO ONE (14:00)
[2021-10-05] MEDS: ATORVASTATIN CA 80 MG TABLET (FP) PO SCH (21:50)
[2021-10-06] MEDS: METOPROLOL TARTRATE 50 MG TABLET (FP) PO SCH ×3 (02:04→18:15)
[2021-10-06 07:30] LABS: INR 1.06 (0.83-1.09); PROTHROMBIN TIME (PATIENT) 12.2 SEC (9.7-13.0)
[2021-10-06 07:33] LABS: ACTIVATED PTT 70.4 SECONDS (25.2-36.5)
[2021-10-06] MEDS ORDERED: DEXTROSE 5%-LACTATED RINGERS 1,000 ML IV SCH (07:45)
[2021-10-06 07:55] LABS: BASO % 0.9 % (0-2.0); HEMATOCRIT 31.1 % (32.4-45.2); HEMOGLOBIN 10.4 GM/dL (10.7-15.3); LYMPH % 32.5 % (8-40); MCHC 33.6 g/dl (32.0-36.0); MEAN CELL VOLUME 95.3 fl (80-96); MEAN PLT VOLUME 8.2 fl (7.5-11.1); MONO % 10.2 % (3.8-10.2); NEUT % 55.4 % (42.8-82.8); PLATELET COUNT 287 10^3/uL (134-434); RBC 3.26 M/mm3 (3.60-5.2); RDW 12.5 % (11.6-15.6); WHITE BLOOD COUNT 5.4 K/mm3 (4.0-10.0)
[2021-10-06 08:47] LABS: ALBUMIN 3.2 g/dl (3.4-5.0); BILIRUBIN,TOTAL 1.3 mg/dL (0.2-1); BLOOD UREA NITROGEN 21.6 mg/dL (7-18); CREATININE 1.4 mg/dL (0.55-1.3); PHOSPHOROUS 3.6 mg/dL (2.5-4.9); TOT PROT 6.5 g/dl (6.4-8.2)
[2021-10-06] MEDS ORDERED: MAGNESIUM OXIDE 400 MG TABLET (FP) PO ONE (08:59)
[2021-10-06 09:41] LABS: EPI CELLS 1 /uL (0-25.1); HYALINE CASTS 0 /uL (0-3.1); PH,URINE 6.5 (5.0-8.0); URINE APPEARANCE CLEAR; URINE BACTERIA 11 /uL (0-1359); URINE BILIRUBIN NEGATIVE (NEGATIVE); URINE COLOR YELLOW; URINE GLUCOSE (UA) NEGATIVE (NEGATIVE); URINE KETONE NEGATIVE (NEGATIVE); URINE LEUK ESTERASE NEGATIVE (NEGATIVE); URINE NITRITE NEGATIVE (NEGATIVE); URINE PROTEIN 2+ (NEGATIVE); URINE RBC 42 /uL (0-23.9); URINE UROBILINOGEN 0.2 mg/dL (0.2-1.0); URINE WBC 8 /uL (0-25.8)
[2021-10-06] MEDS: LOSARTAN POTASSIUM 50 MG TABLET PO SCH (09:56)
[2021-10-06] MEDS: ISOSORBIDE MONONITRATE 30 MG TAB.SR.24H (FP) PO SCH (09:56)
[2021-10-06] MEDS: CLOPIDOGREL BISULFATE 75 MG TABLET (FP) PO SCH (09:56)
[2021-10-06] MEDS: ASPIRIN COATED 81 MG TABLET.EC PO SCH (09:56)
[2021-10-06 10:58] LABS: MAGNESIUM 1.8 mg/dL (1.8-2.4)
[2021-10-06] MEDS: ACETAMINOPHEN 325 MG TABLET (FP) PO PRN (11:42)
[2021-10-06] MEDS: ATORVASTATIN CA 80 MG TABLET (FP) PO SCH (21:45)
[2021-10-06] MEDS: HEPARIN - 25,000 UNIT in SODIUM CHLORIDE 495 ML IV SCH (23:46)
[2021-10-07] MEDS: METOPROLOL TARTRATE 50 MG TABLET (FP) PO SCH ×3 (01:16→17:31)
[2021-10-07 07:22] LABS: HEMATOCRIT 31.3 % (32.4-45.2); HEMOGLOBIN 10.6 GM/dL (10.7-15.3); MCH 32.2 pg (25.7-33.7); MEAN CELL VOLUME 94.9 fl (80-96); MEAN PLT VOLUME 8.1 fl (7.5-11.1); PLATELET COUNT 256 10^3/uL (134-434); RDW 12.3 % (11.6-15.6); WHITE BLOOD COUNT 5.1 K/mm3 (4.0-10.0)
[2021-10-07 08:58] LABS: ALBUMIN 2.9 g/dl (3.4-5.0); CALCIUM 8.3 mg/dL (8.5-10.1); CREATININE 1.3 mg/dL (0.55-1.3); TOT PROT 6.2 g/dl (6.4-8.2)
[2021-10-07] MEDS: CLOPIDOGREL BISULFATE 75 MG TABLET (FP) PO SCH (09:47)
[2021-10-07] MEDS: LOSARTAN POTASSIUM 50 MG TABLET PO SCH (09:47)
[2021-10-07] MEDS: ISOSORBIDE MONONITRATE 30 MG TAB.SR.24H (FP) PO SCH (09:48)
[2021-10-07] MEDS ORDERED: ASPIRIN 81 MG CHEWABLE TABLETS PO SCH (10:00)
[2021-10-07 18:52] VITALS: BP 118/72; PULSE 72; TEMP 98
[2021-10-08 13:08] LABS: SARS-CoV-2 NAA Not Detected (Not Detected)
== END 2021-10-07 20:28 | disposition short-term general hospital (02) | DRG 190 ==
LOC: JER 19:09 → JERBED 20:23 → J2W 23:57 → J4W 10-06 18:45
PROVIDERS: ADMIT Internal Medicine; ATTEND Internal Medicine
DX: I21.4 Non-ST elevation (NSTEMI) myocardial infarction (principal); N17.9 Acute kidney failure, unspecified; E66.9 Obesity, unspecified; E78.00 Pure hypercholesterolemia, unspecified; E78.5 Hyperlipidemia, unspecified; I12.9 Hypertensive chronic kidney disease with stage 1 through stage 4 chronic kidney disease, or unspecified chronic kidney disease; N18.9 Chronic kidney disease, unspecified; Z68.31 Body mass index [BMI] 31.0-31.9, adult; R07.9 Chest pain, unspecified
CPT/HCPCS: 36415; 70450-TC; 71046-TC-FY; 71250-TC; 76775-TC; 80053; 80061; 81003; 82550; 82553; 82570; 82962; 83036; 83735; 83880; 84100; 84443; 84484; 84540; 85025; 85027; 85610; 85730; 93005; 93010; 93306-TC; 99285-25; C9803-CS; J1644; U0003; U0005

== ENCOUNTER 2022-10-11 18:38 | Observation (INO) | payer OTHER ==
[2022-10-11] MEDS ORDERED: LIDOCAINE 5% TOPICAL PATCH TP ONE (20:59)
[2022-10-11] MEDS ORDERED: KETOROLAC TROMETHAMINE 15 MG/ML VIAL IM ONE (21:01)
[2022-10-11] MEDS ORDERED: diazePAM 2 MG TABLET PO ONE (21:05)
[2022-10-11] MEDS ORDERED: diazePAM 2 MG TABLET ONE (21:20)
[2022-10-11] MEDS ORDERED: KETOROLAC TROMETHAMINE 15 MG/ML VIAL ONE (21:21)
[2022-10-11] MEDS ORDERED: LIDOCAINE 5% TOPICAL PATCH ONE (21:21)
[2022-10-11] MEDS ORDERED: LIDOCAINE PATCH REMOVAL MC ONE (22:00)
[2022-10-12 02:07] LABS: BASO % 0.7 % (0-2.0); EOS % 1.4 % (0-4.5); HEMATOCRIT 33.1 % (32.4-45.2); LYMPH % 26.7 % (8-40); MCH 31.3 pg (25.7-33.7); MCHC 33.2 g/dl (32.0-36.0); MEAN CELL VOLUME 94.2 fl (80-96); MEAN PLT VOLUME 7.8 fl (7.5-11.1); MONO % 11.4 % (3.8-10.2); NEUT % 59.8 % (42.8-82.8); PLATELET COUNT 339 10^3/uL (134-434); RBC 3.52 M/mm3 (3.60-5.2); RDW 13.8 % (11.6-15.6); WHITE BLOOD COUNT 6.3 K/mm3 (4.0-10.0)
[2022-10-12 02:38] LABS: CALCIUM 9.7 mg/dL (8.5-10.1)
[2022-10-12 02:39] LABS: ALBUMIN 3.8 g/dl (3.4-5.0); BLOOD UREA NITROGEN 33.1 mg/dL (7-18)
[2022-10-12 02:42] LABS: CREATININE 1.9 mg/dL (0.55-1.3)
[2022-10-12 02:43] LABS: TOT PROT 7.8 g/dl (6.4-8.2)
[2022-10-12 02:44] LABS: BILIRUBIN,TOTAL 1.1 mg/dL (0.2-1)
[2022-10-12] MEDS ORDERED: PREGABALIN 75 MG CAPSULE PO SCH ×2 (05:21→06:00)
[2022-10-12] MEDS ORDERED: LACTATED RINGERS SOLUTION 1,000 ML/1,000 ML INFUS.BAG IV SCH (05:30)
[2022-10-12] MEDS ORDERED: PREGABALIN 25 MG CAPSULE ONE (06:27)
[2022-10-12] MEDS ORDERED: PREGABALIN 50 MG CAPSULE ONE (06:27)
[2022-10-12] MEDS ORDERED: PREGABALIN 25 MG CAPSULE PO SCH (06:58)
[2022-10-12] MEDS ORDERED: ACETAMINOPHEN 325 MG TABLET (FP) ONE ×2 (09:15→15:48)
[2022-10-12] MEDS: ACETAMINOPHEN 500 MG TABLET (FP) PO SCH ×3 (09:25→19:32)
[2022-10-12] MEDS ORDERED: PATIENT'S OWN MEDICATION (NON-FORMULARY) (Tramadol Hcl/Acetaminophen [Tramadol-Acetaminoph PO SCH (10:00)
[2022-10-12] MEDS ORDERED: CYCLOBENZAPRINE HCL 5 MG TABLET PO SCH (10:00)
[2022-10-12] MEDS ORDERED: FUROSEMIDE 40 MG TABLET (FP) PO SCH (10:00)
[2022-10-12] MEDS ORDERED: amLODIPine BESYLATE 5 MG TABLET (FP) ONE (10:30)
[2022-10-12] MEDS ORDERED: TICAGRELOR 90 MG TABLET PO ONE (10:30)
[2022-10-12] MEDS ORDERED: GABAPENTIN 100 MG CAPSULE ONE ×2 (10:31→21:59)
[2022-10-12] MEDS ORDERED: ISOSORBIDE MONONITRATE 30 MG TAB.SR.24H (FP) PO ONE (10:31)
[2022-10-12] MEDS ORDERED: ASPIRIN 81 MG CHEWABLE TABLETS ONE (10:31)
[2022-10-12] MEDS: TICAGRELOR 90 MG TABLET PO SCH (10:44)
[2022-10-12] MEDS: ASPIRIN 81 MG CHEWABLE TABLETS PO SCH (10:44)
[2022-10-12] MEDS: EZETIMIBE 10 MG TABLET (FP) PO SCH (10:45)
[2022-10-12] MEDS: amLODIPine BESYLATE 5 MG TABLET (FP) PO SCH (10:45)
[2022-10-12] MEDS: ISOSORBIDE MONONITRATE 30 MG TAB.SR.24H (FP) PO SCH (10:45)
[2022-10-12] MEDS: GABAPENTIN 100 MG CAPSULE PO SCH ×2 (10:45→22:04)
[2022-10-12] MEDS: metoPROLOL SUCCINATE 25 MG TAB.SR.24H (FP) PO SCH (10:45)
[2022-10-12] MEDS ORDERED: ATORVASTATIN CA 20 MG TABLET (FP) ONE (21:59)
[2022-10-12] MEDS: ATORVASTATIN CA 20 MG TABLET (FP) PO SCH (22:04)
[2022-10-12 22:42] LABS: EPI CELLS 13 /uL (0-25.1); HYALINE CASTS 0 /uL (0-3.1); URINE APPEARANCE CLEAR; URINE BACTERIA 90 /uL (0-1359); URINE BILIRUBIN NEGATIVE (NEGATIVE); URINE COLOR YELLOW; URINE GLUCOSE (UA) NEGATIVE (NEGATIVE); URINE KETONE NEGATIVE (NEGATIVE); URINE LEUK ESTERASE 1+ (NEGATIVE); URINE NITRITE NEGATIVE (NEGATIVE); URINE PROTEIN 1+ (NEGATIVE); URINE RBC 15 /uL (0-23.9); URINE UROBILINOGEN 0.2 mg/dL (0.2-1.0); URINE WBC 50 /uL (0-25.8)
[2022-10-13] MEDS: ACETAMINOPHEN 500 MG TABLET (FP) PO SCH ×3 (01:30→15:35)
[2022-10-13] MEDS ORDERED: amLODIPine BESYLATE 5 MG TABLET (FP) ONE (08:41)
[2022-10-13] MEDS ORDERED: ASPIRIN COATED 81 MG TABLET.EC ONE (08:41)
[2022-10-13] MEDS ORDERED: traMADol HCL 50 MG TABLET ONE ×3 (08:41→20:27)
[2022-10-13] MEDS ORDERED: TICAGRELOR 90 MG TABLET PO ONE (08:41)
[2022-10-13] MEDS ORDERED: GABAPENTIN 100 MG CAPSULE ONE (08:42)
[2022-10-13] MEDS ORDERED: ISOSORBIDE MONONITRATE 30 MG TAB.SR.24H (FP) PO ONE (08:42)
[2022-10-13] MEDS ORDERED: ACETAMINOPHEN 500 MG TABLET (FP) ONE (08:45)
[2022-10-13 08:51] LABS: ALBUMIN 3.3 g/dl (3.4-5.0); BLOOD UREA NITROGEN 31.4 mg/dL (7-18)
[2022-10-13 08:53] LABS: CALCIUM 8.9 mg/dL (8.5-10.1)
[2022-10-13 08:55] LABS: CREATININE 1.7 mg/dL (0.55-1.3)
[2022-10-13] MEDS: traMADol HCL 50 MG TABLET PO PRN ×3 (08:55→20:29)
[2022-10-13] MEDS: amLODIPine BESYLATE 5 MG TABLET (FP) PO SCH (09:05)
[2022-10-13] MEDS: metoPROLOL SUCCINATE 25 MG TAB.SR.24H (FP) PO SCH (09:05)
[2022-10-13] MEDS: ISOSORBIDE MONONITRATE 30 MG TAB.SR.24H (FP) PO SCH (09:05)
[2022-10-13] MEDS: TICAGRELOR 90 MG TABLET PO SCH (09:05)
[2022-10-13] MEDS: ASPIRIN 81 MG CHEWABLE TABLETS PO SCH (09:05)
[2022-10-13] MEDS: GABAPENTIN 100 MG CAPSULE PO SCH (09:05)
[2022-10-13] MEDS: EZETIMIBE 10 MG TABLET (FP) PO SCH (10:34)
[2022-10-13] MEDS ORDERED: PREGABALIN 25 MG CAPSULE ONE (15:23)
[2022-10-13] MEDS ORDERED: PREGABALIN 50 MG CAPSULE ONE (15:23)
[2022-10-13] MEDS: PREGABALIN 75 MG CAPSULE PO SCH (15:35)
[2022-10-14] MEDS: PREGABALIN 75 MG CAPSULE PO SCH ×2 (00:06→06:56)
[2022-10-14] MEDS: ATORVASTATIN CA 20 MG TABLET (FP) PO SCH ×2 (00:06→21:08)
[2022-10-14] MEDS: ACETAMINOPHEN 500 MG TABLET (FP) PO SCH ×5 (02:31→20:31)
[2022-10-14 04:58] VITALS: BMI 30.4
[2022-10-14] MEDS: EZETIMIBE 10 MG TABLET (FP) PO SCH (09:58)
[2022-10-14] MEDS: metoPROLOL SUCCINATE 25 MG TAB.SR.24H (FP) PO SCH (09:58)
[2022-10-14] MEDS: traMADol HCL 50 MG TABLET PO PRN (09:59)
[2022-10-14] MEDS: ISOSORBIDE MONONITRATE 30 MG TAB.SR.24H (FP) PO SCH (09:59)
[2022-10-14] MEDS: amLODIPine BESYLATE 5 MG TABLET (FP) PO SCH (09:59)
[2022-10-14] MEDS: ASPIRIN 81 MG CHEWABLE TABLETS PO SCH (09:59)
[2022-10-14] MEDS: TICAGRELOR 90 MG TABLET PO SCH ×2 (10:55→21:08)
[2022-10-14] MEDS ORDERED: PANTOPRAZOLE 40 MG TABLET PO ONE (12:46)
[2022-10-14] MEDS: PREGABALIN 100 MG CAPSULE PO SCH ×2 (13:38→21:08)
[2022-10-14] MEDS: methylPREDNISolone 4 MG TABLET PO SCH ×2 (13:39→21:08)
[2022-10-15] MEDS: ACETAMINOPHEN 500 MG TABLET (FP) PO SCH ×3 (01:02→13:21)
[2022-10-15] MEDS: methylPREDNISolone 4 MG TABLET PO SCH ×3 (01:03→13:21)
[2022-10-15] MEDS: PREGABALIN 100 MG CAPSULE PO SCH ×2 (06:57→13:21)
[2022-10-15 09:34] VITALS: RESP 20
[2022-10-15] MEDS: amLODIPine BESYLATE 5 MG TABLET (FP) PO SCH (09:35)
[2022-10-15] MEDS: TICAGRELOR 90 MG TABLET PO SCH (09:35)
[2022-10-15] MEDS: metoPROLOL SUCCINATE 25 MG TAB.SR.24H (FP) PO SCH (09:35)
[2022-10-15] MEDS: EZETIMIBE 10 MG TABLET (FP) PO SCH (09:36)
[2022-10-15] MEDS: ISOSORBIDE MONONITRATE 30 MG TAB.SR.24H (FP) PO SCH (09:36)
[2022-10-15] MEDS: ASPIRIN 81 MG CHEWABLE TABLETS PO SCH (09:36)
[2022-10-15] MEDS ORDERED: CEPHALEXIN MONOHYDRATE 500 MG CAPSULE (UD) PO SCH (10:00)
[2022-10-15] MEDS ORDERED: PANTOPRAZOLE 40 MG TABLET PO SCH (10:00)
[2022-10-15 10:04] LABS: ALBUMIN 3.4 g/dl (3.4-5.0); BLOOD UREA NITROGEN 33.9 mg/dL (7-18)
[2022-10-15 10:05] LABS: CALCIUM 9.5 mg/dL (8.5-10.1)
[2022-10-15 10:07] LABS: CREATININE 1.6 mg/dL (0.55-1.3)
[2022-10-15 10:09] LABS: TOT PROT 7.3 g/dl (6.4-8.2)
[2022-10-15] MEDS: traMADol HCL 50 MG TABLET PO PRN (15:32)
[2022-10-15 16:07] LABS: TOTAL PROTEIN, URINE 24.3 mg/dL (Not Estab.)
[2022-10-15 17:51] VITALS: BP 109/62; PULSE 68; TEMP 98.8
== END 2022-10-15 18:20 | disposition home health service (06) ==
LOC: JER 18:38 → INTOOBSV 10-12 03:54 → JERBED 10-12 03:54 → J8W 10-13 23:41
PROVIDERS: ADMIT Internal Medicine; ATTEND Nurse Practitioner Acute Care
DX: N17.9 Acute kidney failure, unspecified (principal); E78.5 Hyperlipidemia, unspecified; Z91.013 Allergy to seafood; Z85.3 Personal history of malignant neoplasm of breast; M54.9 Dorsalgia, unspecified; E66.8 Other obesity; Z68.30 Body mass index [BMI] 30.0-30.9, adult; N18.9 Chronic kidney disease, unspecified
CPT/HCPCS: 0241U-QW; 36415; 72100-TC-FY; 72131-TC; 72148-TC; 72192-TC; 76775-TC; 80053; 81003; 82570; 83935; 84156; 84157; 84300; 85025; 87086; 93005; 93010; 93971-TC; 96360; 96372; 97116-GP; 97161-GP; 99285-25; G0378